=== PATIENT | male | born 1960 | race Caucasian/White ===

== ENCOUNTER 2022-10-17 14:50 | Emergency (ER) | payer BC ==
[2022-10-17] MEDS ORDERED: METOPROLOL TARTRATE 5 MG/5 ML INJ IV ONE (15:09)
[2022-10-17 15:14] LABS: Absolute Lymphocytes (CBC) 1.6 K/uL (0.7-4.9); Hematocrit 42.1 % (39.6-49.0); Lymphocytes % 17.5 % (15.3-44.8); MCV 85.4 fL (80-100); MPV 8.5 fL (7.6-11.3); RBC Red Blood Cell Count 4.93 M/uL (4.33-5.43)
[2022-10-17 15:18] LABS: Protime INR 1.01
[2022-10-17 15:29] LABS: Albumin 3.6 g/dL (3.4-5.0); Bilirubin Direct 0.2 mg/dL (0-0.2); Potassium 3.7 mmol/L (3.5-5.1); Protein, Total 6.9 g/dL (6.4-8.2); Troponin High Sensitivity 11.6 pg/mL (<58.9)
[2022-10-17] MEDS ORDERED: TENECTEPLASE 50 MG/10 ML VIAL IV ONE (15:52)
--- NOTE | 2022-10-17 16:13 | RAD REPORT ---
EXAM DESCRIPTION: RAD - Chest Single View - 10/17/2022 4:02 pm CLINICAL HISTORY: CHEST PAIN COMPARISON: None FINDINGS: Lines: None. Lungs: No evidence of edema or pneumonia. Pleural: No significant pleural effusions or pneumothorax. Cardiac: The heart size is within normal limits. Mediastinum: Within normal limits. Bones: No acute fractures. Other: None IMPRESSION: No acute cardiopulmonary disease.
[2022-10-17 16:14] LABS: SARS-CoV-2 Antigen Rapid Res Negative (Negative)
[2022-10-17] MEDS ORDERED: MORPHINE 4 MG/ML SYR ONE (16:40)
[2022-10-17] MEDS ORDERED: ONDANSETRON 4 MG/2 ML VIAL ONE (16:57)
--- NOTE | 2022-10-17 17:07 | ER ---
Nurse's Notes [facility] Name: Jackson Edwards Age: 62 yrs Sex: Male : 1960 Arrival Date: 10/17/2022 Time: 14:51 Bed 2 Private MD: Diagnosis: Chest pain, unspecified;Abnormal electrocardiogram [ECG] [EKG] Presentation: 10/17 14:35 Chief complaint: Patient states: Was preparing his boat to take out and felt sudden kb3 onset of left-sided chest pain with mild SOB, 7/10 pressure \T\ approximately 1330. 14:35 Coronavirus screen: Vaccine status: Patient reports receiving the 2nd dose of the covid kb3 vaccine. Client denies travel out of the [place] in the last 14 days. Ebola Screen: Patient negative for fever greater than or equal to 101.5 degrees Fahrenheit, and additional compatible Ebola Virus Disease symptoms Patient denies exposure to infectious person. Patient denies travel to an Ebola-affected area in the 21 days before illness onset. Initial Sepsis Screen: Does the patient meet any 2 criteria? No. Patient's initial sepsis screen is negative. Does the patient have a suspected source of infection? No. Patient's initial sepsis screen is negative. Risk Assessment: Do you want to hurt yourself or someone else? Patient reports no desire to harm self or others. Onset of symptoms was October 17, 2022 at 13:30. 14:35 Method Of Arrival: EMS: [facility] kb3 14:35 Acuity: EVE 2 kb3 Triage Assessment: 14:45 General: Appears in no apparent distress. uncomfortable, Behavior is calm, cooperative. kb3 14:45 Pain: Complains of pain in anterior aspect of left upper chest and mid-sternal area kb3 Pain does not radiate. Pain currently is 7 out of 10 on a pain scale. Quality of pain is described as pressure, Pain began 1 hour ago. Cardiovascular: Heart tones present Capillary refill < 3 seconds Patient's skin is warm and dry. Pulses are 2+ in right radial artery and left radial artery Rhythm is atrial flutter 2:1 Chest pain is described as severe, quality is pressure, is located in left substernal area. Respiratory: Reports shortness of breath Mild with onset of chest pressure Breath sounds are clear bilaterally. Historical: - Allergies: 15:22 No Known Allergies; kb3 - Home Meds: 15:22 ferrous gluconate 325 mg (37 mg iron) Oral tab 325 mg daily [Active]; gabapentin 300 mg kb3 oral cap 1 cap 3 times per day [Active]; ibuprofen 800 mg Oral tab 1 tab 3 times per day [Active]; losartan 25 mg oral tab 1 tab once daily [Active]; tadalafil 2.5 mg oral tab 1 tab once daily [Active]; tamsulosin 0.4 mg oral cap 1 cap once daily [Active]; - PMHx: 15:22 Anxiety; Hypertensive disorder; Chronic neck pain; Kidney stone; BPH; Tachycardia; kb3 - PSHx: 15: Carpel Tunnel - Bilateral; kb3 - Immunization history:: Adult Immunizations up to date, Client reports receiving the 2nd dose of the Covid vaccine, Last tetanus immunization: unknown. - Social history:: Smoking status: Patient denies any tobacco usage or history of. - Family history:: not pertinent. Screenin:50 Abuse screen: Denies threats or abuse. Denies injuries from another. Nutritional kb3 screening: No deficits noted. Tuberculosis screening: No symptoms or risk factors identified. Fall Risk None identified. Assessment: 14:50 Reassessment: Patient appears in no apparent distress at this time. No changes from kb3 previously documented assessment. 14:50 Pain: Complains of pain in anterior aspect of left upper chest and mid-sternal area kb3 Pain does not radiate. Pain currently is 7 out of 10 on a pain scale. Quality of pain is described as pressure. Cardiovascular: Rhythm is atrial flutter 2:1. 15:19 General: EKG repeated after first dose of Lopressor 5mg IVP, and presented to Dr petey Alcaraz. 16:40 General: Pt's spouse at bedside. kb3 17:05 General: Report given to [facility] crew. Care transferred.. kb3 17:10 General: Report called to Aarti Martínez at [facility] CCU. kb3 Vital Signs: 14:35 BP 142 / 89; Pulse 122; Resp 22; Temp 98; Pulse Ox 98% ; Weight 73.48 kg; Height 5 ft. kb3 8 in. (172.72 cm); Pain 7/10; 15:00 BP 125 / 88; Pulse 114; Resp 22; Pulse Ox 97% ; kb3 15:15 BP 125 / 88; Pulse 89; Resp 22; Pulse Ox 97% ; kb3 15:30 BP 110 / 79; Pulse 81; Resp 20; Pulse Ox 99% ; kb3 15:45 BP 129 / 90; Pulse 88; Resp 20; Pulse Ox 98% ; kb3 16:00 BP 133 / 88; Pulse 81; Resp 20; Pulse Ox 98% ; kb3 16:15 BP 129 / 76; Pulse 79; Resp 20; Pulse Ox 98% ; kb3 16:30 BP 131 / 84; Pulse 81; Resp 20; Pulse Ox 98% ; kb3 16:45 BP 148 / 76; Pulse 78; Resp 16; Pulse Ox 98% ; kb3 14:35 Body Mass Index 24.63 (73.48 kg, 172.72 cm) kb3 ED Course: 14:45 Arm band placed on left wrist. Patient placed in an exam room, on a stretcher, on kb3 monitoring tech, on pulse oximetry. EKG completed in triage. Results shown to MD. 14:50 No provider procedures requiring assistance completed. Inserted saline lock: 18 gauge kb3 in right hand, using aseptic technique. Blood collected. Maintain EMS IV. Dressing intact. Good blood return noted. Site clean \T\ dry. Gauge \T\ site: 18G left upper arm. 14:50 Patient has correct armband on for positive identification. Placed in gown. Bed in low kb3 position. Call light in reach. Side rails up X2. alarm security or surveillance monitor on. Pulse ox on. NIBP on. Warm blanket given. 14:51 Patient arrived in ED. eb 14:51 Wilfredo Alcaraz MD is Attending Physician. rt 15:03 Basic Metabolic Panel Sent. kb3 15:03 CBC with Diff Sent. kb3 15:03 LFT's Sent. kb3 15:03 NT PRO-BNP Sent. kb3 15:03 PT-INR Sent. kb3 15:03 Troponin HS Sent. kb3 15:22 Triage completed. kb3 15:40 initiated a transfer with Betty from [facility] at the request of eb the patient/ [facility] is at capacity/ She will try [facility] [place] where the patient's medical records receptionist is. 16:03 XRAY Chest (1 view) In Process Unspecified. EDMS 16:03 Ashlyn, Jess, RN is Primary Nurse. kb3 16:04 SARS RAPID Sent. kb3 16:04 Margie the powerhouse mechanic from [facility] denied the patient due to the facility being at capacity. 16:22 initiated a transfer with Anita Ramesh Rn from the [facility]. eb 16:22 connected the Lifeflight Crew with Dr. Alcaraz for flight report. eb 16:24 connected the medical records receptionist sessions clerk for [facility] for patient transfer eb consultation. 16:53 administrative approval given by Anita Ramesh Rn/ patient has been accepted to [facility] CCU / Dr. Holder has accepted the patient in transfer/ report to be called to [phone]. 17:00 Patient transferred, IV remains in place. kb3 Administered Medications: 15:05 Drug: Lopressor (metoprolol) 5 mg Route: IVP; Site: right hand; kb3 15:20 Follow up: Response: No adverse reaction; Cardiac rhythm changed kb3 15:52 Drug: Tenecteplase 40 mg {Co-Signature: iw (Kaitlynn Bustillos RN).} Route: IV; Rate: kb3 calculated rate; Site: right hand; 15:55 Follow up: IV Status: Completed infusion; IV Intake: 8ml kb3 17:07 Follow up: Response: No adverse reaction kb3 16:01 CANCELLED (error in order entryy): TNK FOR STROKE - Tenecteplase 0.25 mg/kg IV at rt per protocol once; MAX DOSE 25 mg, IVP over 5 seconds 16:40 Drug: morphine 4 mg Route: IVP; Infused Over: 4 mins; Site: right hand; kb3 17:07 Follow up: Response: No adverse reaction; Pain is decreased kb3 16:57 Drug: Zofran (Ondansetron) 4 mg Route: IVP; Site: left upper arm; kb3 17:06 Follow up: Response: No adverse reaction kb3 Medication: 14:50 VIS not applicable for this client. kb3 Point of Care Testing: Blood Glucose: 14:45 Blood Glucose: 111 mg/dL; kb3 Ranges: Intake: 15:55 IV: 8ml; Total: 8ml. kb3 Outcome: 17:00 Transferred by helicopter to [facility], Transfer form completed. X-rays sent kb3 w/ patient. 17:00 Condition: stable 17:00 Instructed on the need for transfer. 17:06 ER care complete, transfer ordered by . rt 17:22 Patient left the ED. kb3 Signatures: Dispatcher [employer] EDCara [place] Kelly, RN RN kb3 Wilfredo Alcaraz MD MD rt Kaitlynn Bustillos RN iw
--- NOTE | 2022-10-17 17:07 | EDPHYS ---
Physician Documentation [facility] Name: Jackson Edwards Age: 62 yrs Sex: Male : 1960 Arrival Date: 10/17/2022 Time: 14:51 Bed 2 Private MD: ED Physician Wilfredo Alcaraz HPI: 10/17 17:01 This 62 yrs old Male presents to ER via EMS with complaints of chest pain. rt 17:01 The patient or guardian reports chest pain that is located primarily in the substernal rt area. Onset: just prior to arrival. The pain does not radiate. Associated signs and symptoms: Pertinent positives: dizziness, shortness of breath. The chest pain is described as a pressure. Modifying factors: The symptoms are alleviated by nothing. the symptoms are aggravated by activity. Severity of pain: At its worst the pain was severe. Patient presents to the ED with an acute onset of exertional chest pain. He was moving a boat when it happened. EMS was called, patient was given aspirin, nitro with minimal improvement of the symptoms. They noted ST elevation in the inferior leads, patient was brought here for further eval. Patient denies other acute complaints at this time, symptoms are severe in severity, no other aggravating alleviating factors, of note, patient does have a history of coronary disease, did have an angioplasty performed about a year and a half ago.. Historical: - Allergies: 15:22 No Known Allergies; kb3 - Home Meds: 15:22 ferrous gluconate 325 mg (37 mg iron) Oral tab 325 mg daily [Active]; gabapentin 300 mg kb3 oral cap 1 cap 3 times per day [Active]; ibuprofen 800 mg Oral tab 1 tab 3 times per day [Active]; losartan 25 mg oral tab 1 tab once daily [Active]; tadalafil 2.5 mg oral tab 1 tab once daily [Active]; tamsulosin 0.4 mg oral cap 1 cap once daily [Active]; - PMHx: 15:22 Anxiety; Hypertensive disorder; Chronic neck pain; Kidney stone; BPH; Tachycardia; kb3 - PSHx: 15:22 Carpel Tunnel - Bilateral; kb3 - Immunization history:: Adult Immunizations up to date, Client reports receiving the 2nd dose of the Covid vaccine, Last tetanus immunization: unknown. - Social history:: Smoking status: Patient denies any tobacco usage or history of. - Family history:: not pertinent. ROS: 17:01 Constitutional: Negative for fever, chills, and weight loss, Eyes: Negative for injury, rt pain, redness, and discharge, ENT: Negative for injury, pain, and discharge, Neck: Negative for injury, pain, and swelling, Back: Negative for injury and pain, MS/Extremity: Negative for injury and deformity, Skin: Negative for injury, rash, and discoloration, Neuro: Negative for headache, weakness, numbness, tingling, and seizure, Psych: Negative for depression, anxiety, suicide ideation, homicidal ideation, and hallucinations. 17:01 Cardiovascular: Positive for chest pain, Negative for edema. 17:01 Respiratory: Positive for shortness of breath, Negative for cough. 17:01 Abdomen/GI: Positive for nausea, Negative for abdominal pain. Exam: 16:59 ECG was reviewed by the Attending Physician. rt 17:01 Constitutional: This is a well developed, well nourished patient who is awake, alert, rt and in no acute distress. Head/Face: Normocephalic, atraumatic. Eyes: Pupils equal round and reactive to light, extra-ocular motions intact. Lids and lashes normal. Conjunctiva and sclera are non-icteric and not injected. Cornea within normal limits. Periorbital areas with no swelling, redness, or edema. ENT: Nares patent. No nasal discharge, no septal abnormalities noted. Tympanic membranes are normal and external auditory canals are clear. Oropharynx with no redness, swelling, or masses, exudates, or evidence of obstruction, uvula midline. Mucous membranes moist. Neck: Trachea midline, no thyromegaly or masses palpated, and no cervical lymphadenopathy. Supple, full range of motion without nuchal rigidity, or vertebral point tenderness. No Meningismus. Chest/axilla: Normal chest wall appearance and motion. Nontender with no deformity. No lesions are appreciated. Cardiovascular: Regular rate and rhythm with a normal S1 and S2. No gallops, murmurs, or rubs. Normal PMI, no JVD. No pulse deficits. Respiratory: Lungs have equal breath sounds bilaterally, clear to auscultation and percussion. No rales, rhonchi or wheezes noted. No increased work of breathing, no retractions or nasal flaring. Abdomen/GI: Soft, non-tender, with normal bowel sounds. No distension or tympany. No guarding or rebound. No evidence of tenderness throughout. Skin: Warm, dry with normal turgor. Normal color with no rashes, no lesions, and no evidence of cellulitis. MS/ Extremity: Pulses equal, no cyanosis. Neurovascular intact. Full, normal range of motion. Neuro: Awake and alert, GCS 15, oriented to person, place, time, and situation. Cranial nerves II-XII grossly intact. Motor strength 5/5 in all extremities. Sensory grossly intact. Cerebellar exam normal. Normal gait. Psych: Awake, alert, with orientation to person, place and time. Behavior, mood, and affect are within normal limits. Vital Signs: 14:35 BP 142 / 89; Pulse 122; Resp 22; Temp 98; Pulse Ox 98% ; Weight 73.48 kg; Height 5 ft. kb3 8 in. (172.72 cm); Pain 7/10; 15:00 BP 125 / 88; Pulse 114; Resp 22; Pulse Ox 97% ; kb3 15:15 BP 125 / 88; Pulse 89; Resp 22; Pulse Ox 97% ; kb3 15:30 BP 110 / 79; Pulse 81; Resp 20; Pulse Ox 99% ; kb3 15:45 BP 129 / 90; Pulse 88; Resp 20; Pulse Ox 98% ; kb3 16:00 BP 133 / 88; Pulse 81; Resp 20; Pulse Ox 98% ; kb3 16:15 BP 129 / 76; Pulse 79; Resp 20; Pulse Ox 98% ; kb3 16:30 BP 131 / 84; Pulse 81; Resp 20; Pulse Ox 98% ; kb3 16:45 BP 148 / 76; Pulse 78; Resp 16; Pulse Ox 98% ; kb3 14:35 Body Mass Index 24.63 (73.48 kg, 172.72 cm) kb3 MDM: 14:51 Patient medically screened. rt 17:01 Differential diagnosis: abnormal EKG, acute myocardial infarction, acute pericarditis, rt congestive heart failure pneumonia, pneumothorax, pulmonary embolus. HEART Score: History: Highly Suspicious (2), ECG: Significant ST-deviation (2), Age: > 45 and < 65 years (1), Risk Factors: > or = 3 Risk factors for atherosclerotic disease (2), Troponin: < or = 1 x Normal Limit (0), Total Score = 7. Data reviewed: vital signs, nurses notes, EMS record, lab test result(s), EKG, radiologic studies. ED course: Presents to the ED with an acute onset of exertional chest pain. He was initially called a STEMI, I believe that there was more likely due to a bifascicular block with atrial flutter with a rapid rate. For that reason, elected to slow the patient's heart rate down with Lopressor. After rate control was obtained, he was found to have persistence of ST segment changes. I did discuss the case with Dr. Valentino who states that is very concerning for ischemia EKG, recommend the patient be transferred out for PCI. Initially attempted to transfer the patient to [facility] where he had his angioplasty done, they were unable to accept, will transfer to [facility]. I did discuss the case with the ER physician as well as a foam dispenser there. Given delay in transport and PCI, elected to give patient thrombolytics.. 10/17 14:52 Order name: Basic Metabolic Panel; Complete Time: 15:30 rt 10/17 14:52 Order name: CBC with Diff; Complete Time: 15:30 rt 10/17 14:52 Order name: LFT's; Complete Time: 15:30 rt 10/17 14:52 Order name: NT PRO-BNP; Complete Time: 15:30 rt 10/17 14:52 Order name: PT-INR; Complete Time: 15:30 rt 10/17 14:52 Order name: Troponin HS; Complete Time: 15:30 rt 10/17 14:52 Order name: XRAY Chest (1 view); Complete Time: 16:30 rt 10/17 14:52 Order name: EKG; Complete Time: 14:53 rt 10/17 15:43 Order name: SARS RAPID; Complete Time: 16:30 eb 10/17 14:52 Order name: Cardiac monitoring; Complete Time: 15:03 rt 10/17 14:52 Order name: EKG - Nurse/Tech; Complete Time: 15:03 rt 10/17 14:52 Order name: IV Saline Lock; Complete Time: 15:03 rt 10/17 14:52 Order name: Labs collected and sent; Complete Time: 15:03 rt 10/17 14:52 Order name: O2 Per Protocol; Complete Time: 15:03 rt 10/17 14:52 Order name: O2 Sat Monitoring; Complete Time: 15:03 rt 10/17 15:18 Order name: EKG; Complete Time: 15:19 kb3 10/17 15:18 Order name: EKG - Nurse/Tech; Complete Time: 15:18 kb3 EC:59 Rate is 127 beats/min. Rhythm is regular, A flutter with No ectopy. QRS [place] is Normal. rt QRS interval is prolonged at 134 msec. QT interval is normal. Interpreted by me. 16:59 Rate is 90 beats/min. Rhythm is regular, Normal Sinus Rhythm. QRS [place] is Normal. AL rt interval is normal. QRS interval is normal. QT interval is normal. Interpreted by me. Administered Medications: 15:05 Drug: Lopressor (metoprolol) 5 mg Route: IVP; Site: right hand; kb3 15:20 Follow up: Response: No adverse reaction; Cardiac rhythm changed kb3 15:52 Drug: Tenecteplase 40 mg {Co-Signature: iw (Kaitlynn Bustillos RN).} Route: IV; Rate: kb3 calculated rate; Site: right hand; 15:55 Follow up: IV Status: Completed infusion; IV Intake: 8ml kb3 17:07 Follow up: Response: No adverse reaction kb3 16:01 CANCELLED (error in order entryy): TNK FOR STROKE - Tenecteplase 0.25 mg/kg IV at rt per protocol once; MAX DOSE 25 mg, IVP over 5 seconds 16:40 Drug: morphine 4 mg Route: IVP; Infused Over: 4 mins; Site: right hand; kb3 17:07 Follow up: Response: No adverse reaction; Pain is decreased kb3 16:57 Drug: Zofran (Ondansetron) 4 mg Route: IVP; Site: left upper arm; kb3 17:06 Follow up: Response: No adverse reaction kb3 Point of Care Testing: Blood Glucose: 14:45 Blood Glucose: 111 mg/dL; kb3 Ranges: Critical Glucose Levels:Adult <50 mg/dl or >400 mg/dl <40 mg/dl or >180 mg/dl Disposition: 17:01 Critical Care:. rt Disposition Summary: 10/17/22 17:06 Transfer Ordered Transfer Location: [facility] rt Reason: Higher level of care rt Condition: Critical rt Problem: new rt Symptoms: have improved rt Accepting Physician: Rachid(10/17/22 17:22) [email or web address] Diagnosis - Chest pain, unspecified rt - Abnormal electrocardiogram [ECG] [EKG] rt Forms: - Medication Reconciliation Form rt - SBAR form rt Critical care time excluding procedures: 17:01 Critical care time: Bedside Care: 45 minutes, Consultation: 20 minutes. Total time: 65 rt minutes Signatures: Dispatcher [employer] EDJess Braun RN RN kb3 Wilfredo Alcaraz MD MD rt Kaitlynn Bustillos RN iw Corrections: (The following items were deleted from the chart) 16:01 15:40 TNK FOR STROKE - Tenecteplase 0.25 mg/kg IV at per protocol once; MAX DOSE rt 25 mg, IVP over 5 seconds ordered. rt 17:22 17:06 Rachid rt kb3
[2022-10-17 22:22] VITALS: O2SAT 98
[2022-10-17 22:26] VITALS: BP 148/76
--- NOTE | 2022-10-19 15:01 | EKG ---
Test Date: 2022-10-17 Test Time: 14:46:39 [place]yster Worker: EMEKA MEASUREMENT RESULTS: Intervals: Rate: 127 MI: 122 QRSD: 134 QT: 338 QTc: 491 [place]: P: 50 MI: 122 QRS: 111 T: 45 INTERPRETIVE STATEMENTS: Sinus tachycardia Right bundle branch block Left posterior fascicular block Bifascicular block Inferior infarct, age undetermined Abnormal ECG No previous ECG available for comparison Electronically Signed On 10-19-22 14:56:29 V BELT FINISHER by Juan Valentino
--- NOTE | 2022-10-19 15:01 | EKG ---
Test Date: 2022-10-17 Test Time: 15:14:27 Lab Support Tech: CHAIM MEASUREMENT RESULTS: Intervals: Rate: 90 MN: 168 QRSD: 142 QT: 384 QTc: 469 [place]: P: 70 MN: 168 QRS: 123 T: 39 INTERPRETIVE STATEMENTS: Suspect unspecified pacemaker failure Normal sinus rhythm Right bundle branch block Left posterior fascicular block Bifascicular block Inferior infarct, possibly acute ACUTE [place] / STEMI Abnormal ECG No previous ECG available for comparison Electronically Signed On 10-19-22 14:56:26 CHERRY PITTER by Juan Valentino
== END 2022-10-17 17:22 | disposition short-term general hospital (02) ==
LOC: ER 14:50
DX: R07.89 Other chest pain (principal); R94.31 Abnormal electrocardiogram [ECG] [EKG]; I10 Essential (primary) hypertension; Z20.822 Contact with and (suspected) exposure to COVID-19
CPT/HCPCS: 92977; 93005 ×2; 85025; 80048; 36415; 85610; 80076; 84484; 83880; 71045; 99291; 87811; J3101; J2405; 82947